=== PATIENT | male | born 1990 | race Caucasian/White ===

== ENCOUNTER 2017-01-25 15:44 | Emergency (ER) | payer SELFPAY | END 2017-01-25 19:27 | disposition home or self-care (01) | LOC: ER 15:44 | DX: S83.91XA Sprain of unspecified site of right knee, initial encounter (principal); F17.200 Nicotine dependence, unspecified, uncomplicated; Z88.8 Allergy status to other drugs, medicaments and biological substances; W19.XXXA Unspecified fall, initial encounter; Y93.67 Activity, basketball | CPT/HCPCS: 73560-RT; 99284 ==